=== PATIENT | male | born 1970 | race Caucasian/White ===

== ENCOUNTER 2021-07-22 18:50 | Emergency (ER) | payer OTHER ==
[~2021-07-22] VITALS: Ht 200.7 cm; Wt 108.1 kg
[~2021-07-22 18:50] MED LIST: CYMBALTA20 MG PO; LUNESTA3 MG PO; MULTIVITAMINS; NORCO 5-325 TA1 EACH PO; VITAMIN C100 MG PO; VITAMIN D3250 MC1 PO
[2021-07-22] MEDS ORDERED: AMIODARONE HCL400 MG PO (19:07)
[2021-07-22] MEDS ORDERED: FUROSEMIDE 20 M20 MG PO (19:07)
[2021-07-22] MEDS ORDERED: KATERZIA1 MG/1 ML PO (19:07)
[2021-07-22] MEDS ORDERED: ASA81BEC PO (19:07)
[2021-07-22] MEDS ORDERED: ASPERCREME1 EACH TOP (19:08)
[2021-07-22] MEDS ORDERED: FLOMAX0.4 MG PO (19:08)
[2021-07-22] MEDS ORDERED: KLOR-CON M2020 MEQ PO (19:08)
[2021-07-22] MEDS ORDERED: SENNA8.8 MG/5 M PO (19:08)
[2021-07-22] MEDS ORDERED: LOPRESSOR50 MG PO (19:08)
[2021-07-22 19:19] LABS: ABSOLUTE BASOPHILS 0.1 thou/uL (0.0-0.2); ABSOLUTE EOSINOPHILS 0.4 thou/uL (0.0-0.7); ABSOLUTE LYMPHOCYTES 1.1 thou/uL (0.8-5.3); ABSOLUTE MONOCYTES 0.8 thou/uL (0.0-1.2); ABSOLUTE NEUTROPHILS 4.9 thou/uL (1.6-8.1); EOSINOPHILS 5.4 %; HEMATOCRIT 35.2 % (42.0-52.0); HEMOGLOBIN 11.3 gm/dL (14.0-18.0); LYMPHOCYTES 14.9 %; MCH 27.3 pg (26.0-34.0); MCHC 32.1 g/dL (28.0-37.0); MCV 84.9 fL (80.0-100.0); MONOCYTES 10.5 %; MPV 6.1 fl. (7.2-11.1); NUCLEATED RBCS 0 /100WBC; PLATELET COUNT* 588 thou/uL (150-400); POLYS 68.2 %; RBC 4.15 mil/uL (4.50-6.00); RDW-CV 14.8 % (10.5-14.5); WBC 7.2 thou/uL (4.0-11.0)
[2021-07-22 19:27] LABS: CALCIUM 8.6 mg/dL (8.5-10.1); CREATININE 1.5 mg/dL (0.6-1.3); POTASSIUM 4.3 mmol/L (3.5-5.1)
[2021-07-22 19:36] LABS: INR 1.1; PROTIME 11.5 Seconds (9.20-11.50)
[2021-07-22 19:37] LABS: ALBUMIN 3.2 g/dL (3.4-5.0); MAGNESIUM 2.3 mg/dL (1.8-2.4); TOTAL BILIRUBIN 0.2 mg/dL (<0.1-1.0); TOTAL PROTEIN 7.2 g/dL (6.4-8.2)
[2021-07-22 20:10] LABS: URINE BILIRUBIN NEGATIVE (Negative); URINE BLOOD NEGATIVE (Negative); URINE CLARITY CLEAR; URINE COLOR YELLOW; URINE GLUCOSE-RANDOM NEGATIVE (Negative); URINE KETONES NEGATIVE (Negative); URINE LEUKOCYTES-REFLEX NEGATIVE (Negative); URINE NITRITE-REFLEX NEGATIVE (Negative); URINE PROTEIN NEGATIVE (Negative); URINE UROBILINOGEN 0.2 E.U./dl (0.2-1.0)
[2021-07-22 23:50] VITALS: BP 106/60
--- NOTE | 2021-07-23 09:04 | EKG ---
[place] [address] ELECTROCARDIOGRAM REPORT Name: NARGISPRICILAJOSUÉ SCHUSTER JR Room: [facility]#: [id number] Admission: 07/22/21 Attend Phys: Discharge: 07/22/21 Date of : 70 Date of Service: 07/22/21 1858 Report #: [id number] THIS REPORT FOR: //name// [facility] ED Test Date: 2021-07-22 Test Time: 18:58:22 Pat Name: PRICILA BARILLAS Department: Room: Gender: [employer]: [place] : 1970 Requested By: Cleopatra Pedro Order Number: [id number] MD: Ramu Chappell Measurements Intervals [place] Rate: 73 P: 27 ND: 185 QRS: 35 QRSD: 107 T: 135 QT: 389 QTc: 429 Interpretive Statements Sinus rhythm Abnormal T, consider ischemia, lateral leads Minimal ST elevation, inferior leads No previous ECG available for comparison Electronically Signed On 07-23-2021 9:04:16 CDT by Ramu Chappell [email or web address] <ELECTRONICALLY SIGNED> By: Ramu Chappell MD, [facility] 07/23/21 0904 1858 57 Ramu Chappell MD, [facility] /EPI
== END 2021-07-22 23:50 | disposition short-term general hospital (02) ==
LOC: M.ERS 18:50
PROVIDERS: Emergency Medicine
DX: I95.1 Orthostatic hypotension (principal); Z20.822 Contact with and (suspected) exposure to COVID-19; Z79.82 Long term (current) use of aspirin; Z79.899 Other long term (current) drug therapy; Z88.8 Allergy status to other drugs, medicaments and biological substances